=== PATIENT | female | born 1980 | race Caucasian/White ===

== ENCOUNTER 2018-02-13 22:17 | Emergency (ER) | payer OTHER ==
[~2018-02-13] VITALS: Ht 160 cm; Wt 68.9 kg
--- NOTE | 2018-02-13 23:03 | NUR ---
IFRAH AT BEDSIDE INTERVIEWING PT ABOUT INCIDENT Addendum: 02/13/18 at 2334 by JCALLOWAY IFRAH FU (#[id number]) AND JOAN (#[id number])
--- NOTE | 2018-02-13 23:23 | NUR ---
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
--- NOTE | 2018-02-14 00:08 | NUR ---
PT IN BED RESTING QUIETLY. VSS AND WNL. NO SIGNS OF DISTRESS WITNESSED AT THIS TIME.
--- NOTE | 2018-02-14 01:02 | NUR ---
PT REQUESTS [facility] RIDE HOME UPON DISCHARGE. PT'S WISH WAS GRANTED BY NURSING NEWS CLERK,
--- NOTE | 2018-02-14 01:28 | NUR ---
Patient discharged to home in stable conditon. Written and verbal after care instructions given. Patient verbalizes understanding of instructions. Patient able to ambulate unassisted with a steady gait. Patient left with all personal belongings.
[2018-02-14 01:41] VITALS: BP 124/86
== END 2018-02-14 01:28 | disposition home or self-care (01) ==
LOC: ER 22:19
DX: S60.221A Contusion of right hand, initial encounter (principal); S10.93XA Contusion of unspecified part of neck, initial encounter; T74.11XA Adult physical abuse, confirmed, initial encounter; Y93.89 Activity, other specified; Y92.89 Other specified places as the place of occurrence of the external cause; Y99.8 Other external cause status
CPT/HCPCS: 70360; 73060; 73130 ×2; 99284; A4663